=== PATIENT | female | born 1980 | race Caucasian/White ===

== ENCOUNTER → 2016-04-14 | Outpatient (CLI) | payer MEDICAID ==
[~2016-04-14] MED LIST: IBUP-1542 PO
--- NOTE | 2016-04-14 10:43 | RADRPT ---
PROCEDURE: US OB. CLINICAL INDICATION: Size and dates TECHNIQUE: Multiple sonographic images of the pelvis and gravid uterus were obtained. The images were reviewed on a PACS workstation. COMPARISON: 03/10/2015 FINDINGS: There is a single viable intrauterine gestation. Cardiac activity is present with 161 beats per min [place]. There is a breech presentation. The placenta is anterior. There is no evidence for an abruption or placenta previa. There is a normal amount of amniotic fluid with a MVP = 3.9 cm. Measurements were made in order to determine age. The results are as follows: BPD =3.9 cm HC =14.3 cm AC =13.6 cm FL =2.5 cm Estimated gestational age of approximately 18 weeks and 0 days based on ultrasound measurements. Clinical age: 20 weeks and 2 days. The estimated date of delivery is 09/15/16, based on ultrasound measurements. The EFW = 228 g, <3%, based on LMP age. RPTAT: AA IMPRESSION: Single viable intrauterine gestation of approximately 18 weeks and 0 days based on ultrasound measu rements. Smaller than clinical age by 2 weeks. .Jermaine Almaraz MD, Date Time Electronically viewed and signed by .Jermaine Almaraz MD, on 04/14/2016 10:42 .S/
== END | disposition home or self-care (01) ==
LOC: U/S 09:10
PROVIDERS: ATTEND Obstetrics & Gynecology
DX: O26.849 Uterine size-date discrepancy, unspecified trimester (principal); Z3A.00 Weeks of gestation of pregnancy not specified
CPT/HCPCS: 76805

== ENCOUNTER 2016-08-01 16:34 | Outpatient (CLI) | payer MEDICAID ==
[~2016-08-01] VITALS: Ht 149.9 cm; Wt 77.7 kg
[2016-08-01 17:04] VITALS: BP 127/80; PULSE 69; RESP 69; Ht 149.9 cm; Wt 77.7 kg
[2016-08-01] MEDS ORDERED: PRENAT PO (17:08)
[2016-08-01] MEDS ORDERED: FER325 PO (17:09)
[2016-08-01] MEDS ORDERED: CALC600T11 PO (17:10)
[2016-08-01] MEDS ORDERED: NITR-58 PO (17:12)
[2016-08-01] MEDS ORDERED: URSO300C3 PO (17:12)
--- NOTE | 2016-08-01 19:02 | RADRPT ---
PROCEDURE: OB ultrasound for biophysical profile CLINICAL INDICATION: Biophysical profile. . TECHNIQUE: Multiple sonographic images of the pelvis were obtained. Transabdominal views are obta ined. COMPARISON: OB ultrasound 08/02/2016 FINDINGS: Single intrauterine gestation. Presentation: Cephalic. Placenta: Anterior. No evidence of placental abruption. No evidence of placenta previa. breathing movement = 2/2 tone = 2/2 motion = 2/2 SALVADOR = 2/2 SALVADOR = 11.8 cm heart rate: 137 beats per minute IMPRESSION: Single intrauterine gestation. Biophysical profile 10/14 RPTAT: AADD .Miller Brower MD, MD Date Time Electronically viewed and signed by .Miller Brower MD, on 08/01/2016 19:01 .B/
--- NOTE | 2016-08-01 19:05 | RADRPT ---
PROCEDURE: Obstetrical ultrasound. CLINICAL INDICATION: , evaluation. Pelvic pain. TECHNIQUE: Transabdominal sonographic images of the pelvis are obtained. COMPARISON: OB ultrasound 08/02/2016 FINDINGS: Single intrauterine gestation. There is a cephalic presentation. Measurements were made in order to determine age. The results are as follows: BPD = 8.28 cm HC = 30.04 cm AC = 29.44 cm FL = 6.49 cm Heart rate = 132 beats per minute The placenta is anterior. There is no evidence for an abruption or placenta previa. Ovaries are not visualized. IMPRESSION: Single intrauterine gestation of approximately 33 weeks 3 days by ultrasound criteria. [place] estimated weight = 2190 g; 37 percentile for gestational age of 33 weeks 4 days. RPTAT: AADD .Miller Brower MD, Date Time Electronically viewed and signed by .Miller Brower MD, on 08/01/2016 19:04 .B/
[2016-08-01 19:12] LABS: ADD SCAN DIFF NO
[2016-08-01 19:13] LABS: BASOPHIL # 0.1 10^3/ul (0.0-0.1); BASOPHILS % 0.5 % (0.0-2.0); EOSINOPHILS # 0.1 10^3/ul (0.0-0.5); EOSINOPHILS % 0.7 % (0.0-7.0); HEMATOCRIT 34.7 % (37.0-47.0); HEMOGLOBIN 11.3 g/dl (12.0-16.0); LYMPHOCYTES # 3.9 10^3/ul (0.8-2.9); LYMPHOCYTES % 33.6 % (15.0-51.0); MEAN CORPUSCULAR HEMOGLOBIN 28.5 pg (29.0-33.0); MEAN CORPUSCULAR HGB CONC 32.6 g/dl (32.0-37.0); MEAN CORPUSCULAR VOLUME 87.4 fl (82.0-101.0); MEAN PLATELET VOLUME 10.2 fl (7.4-10.4); MONOCYTE # 0.8 10^3/ul (0.3-0.9); MONOCYTES % 6.5 % (0.0-11.0); NEUTROPHIL # 6.7 10^3/ul (1.6-7.5); NEUTROPHILS % 57.8 % (39.0-77.0); NUCLEATED RED BLOOD CELLS # 0.1 10^3/ul (0.0-0.0); NUCLEATED RED BLOOD CELLS% 0.8 /100WBC (0.0-0.0); PLATELET COUNT 286 10^3/UL (140-415); RED BLOOD COUNT 3.97 10^6/ul (4.20-5.40); RED CELL DISTRIBUTION WIDTH 13.2 % (11.5-14.5); WHITE BLOOD COUNT 11.7 10^3/ul (4.8-10.8)
[2016-08-01 19:33] LABS: BILIRUBIN,INDIRECT 0.1 mg/dl (0-1.1); BILIRUBIN,TOTAL 0.1 mg/dl (0.2-1.3); TOTAL PROTEIN 6.9 g/dl (6.1-8.1)
[2016-08-01 19:34] LABS: ALBUMIN/GLOBULIN RATIO 0.76; BILIRUBIN,INDIRECT 0.1 mg/dl (0-1.1); BILIRUBIN,TOTAL 0.1 mg/dl (0.2-1.3); CALCIUM 8.6 mg/dl (8.4-10.2); CREATININE 0.63 mg/dl (0.44-1.00); POTASSIUM 3.9 mmol/L (3.5-5.1); TOTAL PROTEIN 6.9 g/dl (6.1-8.1)
--- NOTE | 2016-08-01 19:56 | QN ---
Documentation Comment 33+wks GA cholestasis of NST reassuring [place] No CTXs IBRAHIMA 10/14 Labs reviewed --->discharged with precautions -->[facility] in 2 days for NST IVAN LOPEZ M.D. August 01, 2016 19:56
== END 2016-08-01 20:51 | disposition home or self-care (01) ==
LOC: OBT 16:34 → L-D 16:34 → OBT 20:51
PROVIDERS: ATTEND Obstetrics & Gynecology
DX: O26.613 Liver and biliary tract disorders in pregnancy, third trimester (principal); K83.1 Obstruction of bile duct; Z3A.33 33 weeks gestation of pregnancy
CPT/HCPCS: 36415; 76815; 76818; 80053; 80076; 85025; Z7500; G0463

== ENCOUNTER 2016-08-05 10:54 | Inpatient (IN) | payer MEDICAID ==
[~2016-08-05] VITALS: Ht 147.3 cm; Wt 77.7 kg
[~2016-08-05 10:54] MED LIST changes: +CALC600T11 PO; +FER325 PO; -IBUP-1542 PO; +NITR-58 PO; +PRENAT PO; +URSO300C3 PO
[2016-08-05 11:06] VITALS: Ht 147.3 cm; Wt 77.7 kg
[2016-08-05 11:13] VITALS: BP 160/87; PULSE 55; RESP 18
[2016-08-05 11:23] LABS: ADD SCAN DIFF NO
[2016-08-05] MEDS: LACTATED RINGER'S 1,000 ML IV SCH ×3 (11:26→21:30)
[2016-08-05] MEDS ORDERED: OXYTOCIN 30 UNITS/LR 500 ML IV SCH ×2 (11:30→13:36)
[2016-08-05] MEDS ORDERED: METHYLERGONOVINE 0.2 MG INJ IM PRN ×2 (11:30→14:00)
[2016-08-05] MEDS ORDERED: CARBOPROST 250 MCG INJ IM PRN ×2 (11:30→14:00)
[2016-08-05] MEDS ORDERED: CEFAZOLIN 2 GM/50 ML (PMX) 50 ML IV SCH (11:30)
[2016-08-05] MEDS ORDERED: OXYTOCIN 30 UNITS/LR 500 ML IV PRN ×2 (11:30→14:00)
[2016-08-05] MEDS ORDERED: MISOPROSTOL 200 MCG TAB PR PRN ×2 (11:30→14:00)
[2016-08-05 11:34] LABS: BASOPHIL # 0.1 10^3/ul (0.0-0.1); BASOPHILS % 0.6 % (0.0-2.0); EOSINOPHILS # 0.1 10^3/ul (0.0-0.5); EOSINOPHILS % 0.6 % (0.0-7.0); HEMATOCRIT 37.3 % (37.0-47.0); HEMOGLOBIN 12.2 g/dl (12.0-16.0); LYMPHOCYTES # 3.9 10^3/ul (0.8-2.9); LYMPHOCYTES % 36.5 % (15.0-51.0); MEAN CORPUSCULAR HGB CONC 32.7 g/dl (32.0-37.0); MEAN CORPUSCULAR VOLUME 88.6 fl (82.0-101.0); MEAN PLATELET VOLUME 10.2 fl (7.4-10.4); MONOCYTE # 0.6 10^3/ul (0.3-0.9); MONOCYTES % 5.6 % (0.0-11.0); NEUTROPHILS % 55.8 % (39.0-77.0); NUCLEATED RED BLOOD CELLS% 0.3 /100WBC (0.0-0.0); PLATELET COUNT 256 10^3/UL (140-415); RED BLOOD COUNT 4.21 10^6/ul (4.20-5.40); RED CELL DISTRIBUTION WIDTH 14.2 % (11.5-14.5); WHITE BLOOD COUNT 10.8 10^3/ul (4.8-10.8)
[2016-08-05 11:40] LABS: INR 0.82; PARTIAL THROMBOPLASTIN TIME 27.5 Sec (25.0-35.0); PROTIME 11.3 Sec (12.2-14.2); PT RATIO 0.9
[2016-08-05] MEDS ORDERED: LACTATED RINGER'S 1,000 ML IV ONE (11:40)
[2016-08-05] MEDS ORDERED: METOCLOPRAMIDE 10 MG INJ IV STA ×2 (11:47→11:54)
[2016-08-05] MEDS ORDERED: CITRIC ACID/SODIUM CITRATE 15 ML CUP ONE (11:53)
[2016-08-05] MEDS ORDERED: ONDANSETRON 4 MG INJ IV ONE (12:00)
[2016-08-05] MEDS ORDERED: CITRIC ACID/NA CITRATE 30 ML CUP PO ONE (12:00)
[2016-08-05] MEDS ORDERED: morphine SULFATE/PF (10 MG/10 ML) INJ ONE (12:11)
[2016-08-05] MEDS ORDERED: FENTAnyl 50 MCG/ML VIAL ONE (12:11)
[2016-08-05] MEDS ORDERED: MEPERIDINE 100 MG INJ ONE (12:28)
[2016-08-05] MEDS ORDERED: DIPHENHYDRAMINE 50 MG INJ IV PRN (13:00)
[2016-08-05] MEDS ORDERED: PROCHLORPERAZINE 10 MG INJ IV PRN (13:00)
[2016-08-05] MEDS ORDERED: HYDROmorphONE 1 MG/ML SYG IV PRN ×2 (13:00)
[2016-08-05] MEDS ORDERED: NALOXONE (0.4 MG/ML) INJ IV PRN (13:00)
[2016-08-05] MEDS ORDERED: ONDANSETRON 4 MG INJ IV PRN (13:00)
[2016-08-05] MEDS ORDERED: OXYTOCIN 30 UNITS/LR 500 ML IV ONE (13:03)
[2016-08-05 13:07] LABS: AADO2 Cord Arterial 54.9 mmHg; Arterial Cord Blood pCO2 69.6 mmHG (25-50); CBA Base Excess -0.7 mmol/L; CBA Total Hemglobin 16.3 g/dl; Cord Blood Arterial pO2 11.5 mmHG (15.0-45.0); Fraction OxyHgb Cord Arterial 13.6 %; MODE ROOM AIR; MetHgb Cord Arterial 2.3 %; Sample Type CBA
[2016-08-05 13:09] LABS: CBV Base Excess -2.7 mmol/L; CBV COHb 0.3 %; CBV Total Hemglobin 16.4 g/dl; Cord Blood Venous AADO2 64.1 mmHg; Cord Blood Venous pO2 10.4 mmHG (15.0-45.0); Fraction OxyHgb Cord Venous 11.9 %; MODE ROOM AIR; MetHgb Cord Venous 2.1 %; Sample Type CBV
[2016-08-05] MEDS ORDERED: OXYCODONE/ACETAMINOPHEN (5/325) TAB PO PRN ×2 (14:00)
[2016-08-05] MEDS ORDERED: LANOLIN 7 GM TUBE TOP PRN (14:00)
[2016-08-05] MEDS: IBUPROFEN 800 MG TAB PO SCH ×2 (14:00→21:56)
--- NOTE | 2016-08-05 14:27 | PREOPHP ---
DATE OF ADMISSION: 08/05/2016 HISTORY OF PRESENT ILLNESS: Patient is a 35-year-old 6, para 5 with an intrauterine pregnan cy at 34 weeks 1 day. The patient has cholestasis of IUGR and marginal cord insertion has been foll owed at the clinic and received a call from Dr. Baer today stating this patient needs to be deliver ed urgently due to a non-reassuring heart tracing category 2. [facility] and proceeding to delivery. The patient's small prev ious deliveries were all vaginal delivery. She did have 1 demise at term, her second baby. T he patient was just diagnosed with cholestasis that is ongoing. started on ursodiol and Welchol less than a week ago. Her bile acids were 20. Growth was 2 weeks behind. All of her other babies were between 7 and 8 pounds, all were good normal size. PAST MEDICAL HISTORY: Cholestasis. PAST SURGICAL HISTORY: None. ALLERGIES: NO KNOWN DRUG ALLERGIES. VITAL SIGNS: Temperature 98.0, blood pressure 160/87, was her first one here. HEART: Regular rate and rhythm. LUNGS: Clear to auscultation. ABDOMEN: Soft, nontender, gravid, small. PELVIC: Cervical exam deferred. EXTREMITIES: Nontender, no edema. LABORATORY WORK: Her blood type O positive, antibody screen negative, serology nonreactive , rubella immune. Pap normal. Hepatitis B surface antigen negative, HIV negative. Initial hemoglo bin 12.7, repeat now was 12.7, which was normal. One hour post-Glucola was 136. ASSESSMENT: Intrauterine at 34 weeks 1 day, intrauterine growth restriction, category 2 t racing, cholestasis. History of a term demise. PLAN: Primary low transverse section, urgent. Dictated By: EBONY JOHNSON/KELLEY Conf#: [id number] DID#: [id number]
[2016-08-05] MEDS: KETOROLAC 30 MG INJ IV PRN (14:40)
--- NOTE | 2016-08-05 15:03 | OPR ---
DATE OF OPERATION: 08/05/2016 PREOPERATIVE DIAGNOSES: Intrauterine at 34 weeks 1 day, cholestasis, intrauterine growth restriction, history of demise at term, category 2 heart tracing. POSTOPERATIVE DIAGNOSES: 1. Intrauterine at 34 weeks 1 day, cholestasis, intrauterine growth restriction, history of demise at term, category 2 heart tracing. 2. Status post delivery of a viable male infant weighing 1615 grams or 3 pounds 9 ounces with scores of 9 and 9. OPERATION PERFORMED: Primary low transverse section. SURGEON: Dr Perez WATER COMMISSIONER: Dr Soriano ANESTHESIOLOGIST: Dr. New ANESTHESIA: Spinal block. ESTIMATED BLOOD LOSS: 500 mL. COMPLICATIONS: None. PATHOLOGY: Placenta sent to pathology. PROCEDURE: Patient was brought to the operating room, placed on the operating table and was sat up for a spinal block. She was then laid in the full supine position. A Weaver catheter was placed and she was prepped and draped in the usual sterile fashion. A Pfannenstiel incision was made using a knife through the skin and subcutaneous tissue down to the level of fascia. Fascia was incised and extended bilaterally using Bovie cautery. Superior edge of the fascia was grasped with Page clamps and the rectus muscles were from the overlying fascia using blunt dissection and Bovie cautery. The anterior peritoneum was bluntly entered using the surgeon's fingers and the incision was stretched open with hands. Bladder blade and Harper retractor were placed into the incision and lower uterine segment was incised with a knife , entered with a Ewelina clamp and then stretched open with hands and cut with bandage scissors. Bag was intact, it was ruptured. head was easily delivered through the incision with gentle fundal pressure was delivered. There was a nuchal cord with minimal Rick's jelly around it that was delivered. Cord was allowed to pulsate for 30 seconds prior to cutting and cut. Kept a piece of cord for cord gases just in case, and then collected cord blood, and placenta was then manually extracted and sent to pathology. The inside of the uterus was cleaned. The incision was closed in 2 layers using #1 chromic in a running locking stitch with excellent tissue approximation and hemostasis. Tubes and ovaries were examined and noted to be normal. The pelvis was irrigated well. Uterus was replaced back into the abdomen. Incision was examined again and noted to be dry. The anterior peritoneum was then closed using 2-0 chromic in a running stitch. The rectus muscles were also brought back together at midline with 2 interrupted [id number] sutures of the same material. The underbelly of the fascia was examined and noted to be dry. Fascia was then closed using 0 Vicryl suture in a running stitch from each lateral edge to midline with overlap at the midline. Subcutaneous tissue was irrigated well, cautery applied where needed for hemostasis. The subcutaneous layer was closed with 2-0 chromic and the skin was closed with 3-0 Monocryl in a subcuticular stitch. Steri-Strips with Mastisol were then placed and a good pressure dressing was applied. The patient tolerated the procedure very well and was brought to recovery room in excellent condition. Dictated By: BEONY JOHNSON/KELLEY Conf#: [id number] DID#: [id number] MTDYolanda
[2016-08-05] MEDS ORDERED: MAGNESIUM SULFATE 4 GM/100 ML 100 ML IV SCH (15:15)
[2016-08-05] MEDS ORDERED: CA GLUCONATE (GM) 10% 10ML INJ IV PRN (15:30)
[2016-08-05] MEDS ORDERED: CITRIC ACID/SODIUM CITRATE 15 ML CUP PO ONE (15:30)
[2016-08-05 15:34] LABS: ALBUMIN 3.1 g/dl (3.3-4.9); ALBUMIN/GLOBULIN RATIO 0.77; BILIRUBIN,INDIRECT 0.3 mg/dl (0-1.1); BILIRUBIN,TOTAL 0.3 mg/dl (0.2-1.3); CALCIUM 9.8 mg/dl (8.4-10.2); CREATININE 0.56 mg/dl (0.44-1.00); POTASSIUM 4.3 mmol/L (3.5-5.1); TOTAL PROTEIN 7.1 g/dl (6.1-8.1)
[2016-08-05] MEDS: MAGNESIUM SULFATE 20 GM/500 ML 500 ML IV SCH (16:01)
[2016-08-05 17:00] VITALS: BP 133/79; PULSE 65; RESP 18
[2016-08-05 18:00] VITALS: BP 155/93; PULSE 113; RESP 18
[2016-08-05 20:00] VITALS: BP 137/84; PULSE 18; RESP 18
[2016-08-05 21:00] VITALS: BP 132/72; PULSE 71; RESP 18
[2016-08-05 23:00] VITALS: BP 126/66; PULSE 83; RESP 18
[2016-08-06] VITALS (12 sets, daily range): BP systolic 109–131; BP diastolic 65–85; PULSE 75–90; RESP 16–20
[2016-08-06] MEDS: MAGNESIUM SULFATE 20 GM/500 ML 500 ML IV SCH ×2 (01:47→21:45)
[2016-08-06 04:08] LABS: ADD SCAN DIFF NO
[2016-08-06 04:36] LABS: BASOPHIL # 0.1 10^3/ul (0.0-0.1); BASOPHILS % 0.3 % (0.0-2.0); EOSINOPHILS % 0.2 % (0.0-7.0); HEMATOCRIT 30.3 % (37.0-47.0); LYMPHOCYTES # 3.1 10^3/ul (0.8-2.9); LYMPHOCYTES % 21.1 % (15.0-51.0); MEAN CORPUSCULAR VOLUME 87.8 fl (82.0-101.0); MEAN PLATELET VOLUME 10.6 fl (7.4-10.4); MONOCYTE # 0.8 10^3/ul (0.3-0.9); MONOCYTES % 5.5 % (0.0-11.0); NEUTROPHIL # 10.4 10^3/ul (1.6-7.5); NEUTROPHILS % 72.1 % (39.0-77.0); PLATELET COUNT 205 10^3/UL (140-415); RED BLOOD COUNT 3.45 10^6/ul (4.20-5.40); RED CELL DISTRIBUTION WIDTH 14.6 % (11.5-14.5); WHITE BLOOD COUNT 14.5 10^3/ul (4.8-10.8)
[2016-08-06] MEDS: IBUPROFEN 800 MG TAB PO SCH ×3 (06:00→21:37)
--- NOTE | 2016-08-06 07:16 | RADRPT ---
PROCEDURE: XR Chest. CLINICAL INDICATION: Positive PPD TECHNIQUE: Single frontal view of the chest was obtained COMPARISON: None FINDINGS: The heart and mediastinum are within normal limits. The lungs are clear and there is no pleural effusion or pneumothorax. RPTAT: AA IMPRESSION: No active disease. No radiographic evidence of active tuberculosis. .Jermaine Almaraz MD, MD Date Time Electronically viewed and signed by .Jermaine Almaraz MD, on 08/06/2016 07:16 .S/
[2016-08-06] MEDS: KETOROLAC 30 MG INJ IV PRN (07:56)
[2016-08-06] MEDS: LACTATED RINGER'S 1,000 ML IV SCH ×4 (11:10→21:36)
[2016-08-06] MEDS: CLINDAMYCIN 300 MG CAP PO SCH (19:10)
--- NOTE | 2016-08-06 20:35 | PN ---
Date/Time of Note Date/Time of Note DATE: 08/06/16 TIME: 20:33 Assessment/Plan VTE Prophylaxis VTE Prophylaxis Intervention: ambulation Lines/Catheters IV Catheter Type (from Nrsg): Peripheral IV Assessment/Plan Assessment/Plan POD # 1 S/P C/S will advance diet and ambulate Subjective 24 Hr Interval Summary no BM passing flatus Constitutional: BM, ambulates, flatus, improved, no complaints, urine output Pain Control: well controlled Exam/Review of Systems Vital Signs Vitals Vital Signs Date Time Temp Pulse Resp B/P Pulse Ox O2 Delivery O2 Flow Rate FiO2 08/06/16 16:18 97.8 80 20 124/72 Room Air 08/06/16 08:40 98 21 Intake and Output 08/05/16 08/05/16 08/06/16 15:00 23:00 07:00 Intake Total 2500 ml 950 ml 950 ml Output Total 1100 ml 1750 ml 1150 ml Balance 1400 ml -800 ml -200 ml Exam Free Text/Dictation abdomen: soft BS + Constitutional: alert, oriented, well developed Psych: nl mood/affect, no complaints Head: atraumatic, normocephalic Eyes: EOMI, nl conjunctiva, nl lids, nl sclera ENMT: mucosa pink and moist, nl external ears & nose, nl lips & teeth, nl nasal mucosa & septum Neck: non-tender, supple Respiratory: clear to auscultation, normal air movement Cardiovascular: nl pulses, regular rate and rhythm Gastrointestinal: nl liver, spleen, non-tender, soft Drains None Musculoskeletal: nl extremities to inspection, nl gait and stance Extremities: normal pulses Neurological: CONDENSER TUBE TENDER II-XII intact, nl mental status, nl speech, nl strength Skin: nl turgor, rash or lesions Lymph: nl lymph nodes Results Result Diagram: 08/06/16 0306 08/05/16 1110 GEOFF FALLON MD August 06, 2016 20:35
--- NOTE | 2016-08-06 23:08 | NSTRPT ---
NST Information Datetime Report Generated by CPN: 08/06/2016 23:08 Datetime: 08/05/2016 09:13 NST Information EGA: 34.1 Test Number: 3 Time on Monitor: 08/05/2016 09:43 Time off Monitor: 08/05/2016 10:42 NST Duration (Min): 59 Reason for NST: IUGR; Other Reason for NST Other: Velamentous Cord Insertion Test and Monitor Explained: Monitor Explained; Test Explained; Verbalized Understanding Pulse: 52 Resp: 17 SBP: 139 DBP: 85 Test Evaluation NST Interventions: Reposition Patient Patient States Movement: Present Contraction Frequency: undertermined at this time. FHR Baseline : 150 Variability: Moderate 6-25bpm Accelerations: 10X10 Decelerations: Variable FHR Category: Category II NST Results: Non-Reactive Provider Notified: Dr Baer, Dr Perez (covering for Dr Boles) Comments: To Perinatology, SALVADOR 9.4cm, cephalic S/D ratio 3.87 1030-Dr aBer at bedside, order received to call Dr Perez (covering for Dr Boles), Dr Baer exp higinio POC to pt of need for delivery of fetus via c/s at this time. Pt states understanding and de nies further questions at this time. Dr Perez on phone, Dr Baer giving report. Orders received fro m Dr Perez to admit to L_D for C/S. Report called to Karon Shaw/L_D. 1045-Pt to L_D via w/c accomp by MARK Cunningham. Electronically Signed By E-Signature: with User ID: [id number] Datetime: 07/31/2016 11:29 NST Information EGA: 33.3 NST Duration (Min): 41 Datetime: 07/28/2016 11:22 NST Information EGA: 33.0 Datetime: 07/28/2016 11:15 NST Duration (Min): 35
[2016-08-07] MEDS: CLINDAMYCIN 300 MG CAP PO SCH ×4 (00:13→17:46)
[2016-08-07 01:00] VITALS: BP 109/61; PULSE 75; RESP 15
[2016-08-07 04:30] VITALS: BP 121/80; PULSE 66; RESP 16
[2016-08-07] MEDS: LACTATED RINGER'S 1,000 ML IV SCH (05:36)
[2016-08-07] MEDS: IBUPROFEN 800 MG TAB PO SCH ×3 (05:44→22:26)
[2016-08-07 07:50] VITALS: BP 126/76; PULSE 83; RESP 17
[2016-08-07 08:21] LABS: ADD SCAN DIFF NO
[2016-08-07 08:26] LABS: BASOPHILS % 0.2 % (0.0-2.0); EOSINOPHILS # 0.1 10^3/ul (0.0-0.5); EOSINOPHILS % 0.6 % (0.0-7.0); HEMATOCRIT 31.3 % (37.0-47.0); HEMOGLOBIN 10.1 g/dl (12.0-16.0); LYMPHOCYTES % 20.2 % (15.0-51.0); MEAN CORPUSCULAR HEMOGLOBIN 28.8 pg (29.0-33.0); MEAN CORPUSCULAR HGB CONC 32.3 g/dl (32.0-37.0); MEAN CORPUSCULAR VOLUME 89.2 fl (82.0-101.0); MEAN PLATELET VOLUME 10.4 fl (7.4-10.4); MONOCYTE # 0.7 10^3/ul (0.3-0.9); MONOCYTES % 4.6 % (0.0-11.0); NEUTROPHIL # 10.9 10^3/ul (1.6-7.5); NEUTROPHILS % 73.9 % (39.0-77.0); PLATELET COUNT 208 10^3/UL (140-415); RED BLOOD COUNT 3.51 10^6/ul (4.20-5.40); RED CELL DISTRIBUTION WIDTH 15.7 % (11.5-14.5); WHITE BLOOD COUNT 14.8 10^3/ul (4.8-10.8)
--- NOTE | 2016-08-07 13:54 | DS ---
Date/Time of Note Date/Time of Note home next day DATE: 08/07/16 TIME: 13:52 Obstetrical Discharge Record Final Diagnosis Final Diagnosis: delivered Other Final Diagnosis S/P C/S , IUGR , category 2 FHTs Section Section: Primary Primary Indication IUGR and persistent category 2 FHTs Complications Other (IUGR) Condition on Discharge Physical Assessment Last Vitals: see nurses notes Voiding: Yes Bowel Movement: Yes Breast: Soft, non-tender, Filling Fundus: Firm Abdomen and Incision: soft BS= Incision: healing well Episiotomy: NA Calf Tenderness: No Patient Condition: Good GEOFF FALLON MD Aug 07, 2016 13:54
--- NOTE | 2016-08-07 13:56 | DS ---
Date/Time of Note Date/Time of Note DATE: 08/07/16 TIME: 13:54 Discharge Summary Admission/Discharge Info Admit Date/Time August 05, 2016 at 10:54 Discharge Date/Time 08/09/2016 Final Diagnosis S/P C/S Procedures primary C/S Hx of Present Illness 35 y/o female had repeat C/S Hospital Course uncomplicated Home Meds Reported Medications Nitrofurantoin Monohyd Macrocr* (Macrobid*) 100 Mg Capsr, 100 MG PO Q12, CAP 08/01/16 Ursodiol* (Ursodiol*) 300 Mg Capsule, 300 MG PO TID, CAP 08/01/16 Calcium Carbonate* (Calcium Carbonate*) 600 MG Ca Tab, 500 MG PO BID, TAB 08/01/16 Ferrous Sulfate* (Ferrous Sulfate*) 325 Mg Tabec, 325 MG PO BID, TAB 08/01/16 Multivit/Min/Fol Ac/Iron/Pren* ( S*) 1 Tab Tab, 1 TAB PO DAILY, TAB 08/01/16 Discontinued Scripts Ibuprofen* (Ibuprofen*) 600 Mg Tab, 600 MG PO Q6, #20 TAB 0 Refills Prov:GEOFF FALLON MD 03/11/15 Follow-up Plan 2-3 days in clinic for staple removal Primary Care Provider Care Physician No Primary Pending Labs Laboratory Tests Test 08/07/16 07:30 White Blood Count 14.810^3/ul (4.8-10.8) Red Blood Count 3.5110^6/ul (4.20-5.40) Hemoglobin 10.1g/dl (12.0-16.0) Hematocrit 31.3% (37.0-47.0) Mean Corpuscular Volume 89.2fl (82.0-101.0) Mean Corpuscular Hemoglobin 28.8pg (29.0-33.0) Mean Corpuscular Hemoglobin Concent 32.3g/dl (32.0-37.0) Red Cell Distribution Width 15.7% (11.5-14.5) Platelet Count 23827^3/UL (140-415) Mean Platelet Volume 10.4fl (7.4-10.4) Neutrophils % 73.9% (39.0-77.0) Lymphocytes % 20.2% (15.0-51.0) Monocytes % 4.6% (0.0-11.0) Eosinophils % 0.6% (0.0-7.0) Basophils % 0.2% (0.0-2.0) Nucleated Red Blood Cells % 0.0/100WBC (0.0-0.0) Neutrophils # 10.910^3/ul (1.6-7.5) Lymphocytes # 3.010^3/ul (0.8-2.9) Monocytes # 0.710^3/ul (0.3-0.9) Eosinophils # 0.110^3/ul (0.0-0.5) Basophils # 0.010^3/ul (0.0-0.1) Nucleated Red Blood Cells # 0.010^3/ul (0.0-0.0) GEOFF FALLON MD Aug 07, 2016 13:56
--- NOTE | 2016-08-07 13:57 | PD.PPDC ---
TIRE BUSTER Discharge Instruction Provider Information Physician Information 35 y/o female had primary C/S Diagnosis Final Diagnosis: S/P C/S Condition Patient Condition: Good Diet Diet: Resume Regular Diet Activity/Restrictions Activity: July Shower Restrictions: No Exercising Nothing in the Vagina Return to Work or School: Oct 13, 2016 Follow-up Follow-up with Physician: 2, 3, Day/Days (in clinic) Return to clinic for BUSINESS DEVELOPMENT ANALYST Instructions: Fever greater than 101 Chills OB Instructions: Breast Tenderness Depression Surgical Instructions: Incisional Drainage Incisional Redness GEOFF FALLON MD Aug 07, 2016 13:57
[2016-08-07] MEDS ORDERED: Oxycodone/Acetamin (5/325) PO (13:59)
[2016-08-07] MEDS ORDERED: IBUP800T25 PO (13:59)
[2016-08-07 16:10] VITALS: BP 109/56; PULSE 98; RESP 18
[2016-08-07 20:00] VITALS: BP 119/80; PULSE 71; RESP 19
[2016-08-08] MEDS: CLINDAMYCIN 300 MG CAP PO SCH ×3 (00:27→11:43)
[2016-08-08 04:15] VITALS: BP 110/63; PULSE 67; RESP 19
[2016-08-08] MEDS: IBUPROFEN 800 MG TAB PO SCH ×2 (05:50→14:16)
[2016-08-08 08:00] VITALS: BP 120/75; PULSE 63; RESP 18
[2016-08-08] MEDS ORDERED: DIPHTH/TET/ACEL PERTUSS (ADULT) 0.5 ML VIAL IM* ONE (09:00)
== END 2016-08-08 17:45 | disposition home or self-care (01) | DRG 766 ==
LOC: L-D 10:54 → PP1 16:59 → EDSTATUS 09-15 10:52
PROVIDERS: ADMIT Obstetrics & Gynecology; ATTEND Obstetrics & Gynecology
PROC: 10D00Z1 Extraction of Products of Conception, Low, Open Approach (ICD-10-PCS; principal; 2016-08-05 12:30)
DX: O60.14X0 Preterm labor third trimester with preterm delivery third trimester, not applicable or unspecified (principal); O76 Abnormality in fetal heart rate and rhythm complicating labor and delivery; Z3A.34 34 weeks gestation of pregnancy; Z37.0 Single live birth
CPT/HCPCS: 36415; 36600; 71010; 80053; 82803; 83735; 84560; 85025; 85610; 85730; 86592; 86850; 86900; 86901; 87340; 88307; 90715; 94760; 99464; J0690; J1885; J2175; J2274; J2405; J2590; J2765; J3010; J3475; J7120

== ENCOUNTER 2019-01-05 11:48 | Inpatient (IN) | payer MEDICAID ==
[~2019-01-05] VITALS: Ht 147.3 cm; Wt 72.3 kg
[2019-01-05] VITALS (8 sets, daily range): BP systolic 92–121; BP diastolic 53–70; PULSE 56–78; RESP 16–20; Ht 147.3 cm; Wt 72.3 kg
[~2019-01-05 11:48] MED LIST changes: +Acetaminophen PO; -CALC600T11 PO; +CALC600T24 PO; +IBUP-1544 PO; +IBUP800T48 PO; -NITR-58 PO; +Oxycodone/Acetamin (5/325) PO; -URSO300C3 PO
[2019-01-05] MEDS ORDERED: LACTATED RINGER'S 1,000 ML IV SCH (12:25)
[2019-01-05] MEDS ORDERED: CEFAZOLIN 2 GM/50 ML (PMX) 50 ML IVPB SCH (12:30)
[2019-01-05] MEDS ORDERED: MISOPROSTOL 200 MCG TAB PR PRN ×2 (12:30→20:00)
[2019-01-05] MEDS ORDERED: LACTATED RINGER'S 1,000 ML IV ONE (12:30)
[2019-01-05] MEDS ORDERED: OXYTOCIN 30 UNITS/LR 500 ML IV SCH (12:30)
[2019-01-05] MEDS ORDERED: CARBOPROST 250 MCG INJ IM PRN ×2 (12:30→20:00)
[2019-01-05] MEDS ORDERED: METHYLERGONOVINE 0.2 MG INJ IM PRN ×2 (12:30→20:00)
[2019-01-05] MEDS ORDERED: OXYTOCIN 30 UNITS/LR 500 ML IV PRN ×2 (12:30→20:00)
[2019-01-05] MEDS ORDERED: ONDANSETRON 4 MG INJ IV STA (13:32)
[2019-01-05] MEDS ORDERED: CITRIC ACID/NA CITRATE 30 ML CUP PO ONE (14:00)
[2019-01-05] MEDS ORDERED: FAMOTIDINE 20 MG INJ IV ONE (14:00)
[2019-01-05] MEDS ORDERED: FENTAnyl 50 MCG/ML VIAL ONE (15:09)
[2019-01-05] MEDS ORDERED: METOCLOPRAMIDE 10 MG INJ ONE (15:28)
[2019-01-05] MEDS ORDERED: PHENYLephrine (100 MCG/ML) 10ML SYG ONE (15:30)
[2019-01-05] MEDS ORDERED: EPHEDrine 25 MG/5 ML SYG ONE (15:30)
[2019-01-05] MEDS ORDERED: KETOROLAC 30 MG INJ IV STA (16:27)
[2019-01-05] MEDS ORDERED: ACETAMINOPHEN 500 MG TAB PO STA (16:27)
[2019-01-05] MEDS ORDERED: AZITHROMYCIN 500MG/NS (PMX) 250 ML IVPB ONE (16:30)
[2019-01-05] MEDS ORDERED: NALOXONE (0.4 MG/ML) INJ IV PRN (17:00)
[2019-01-05] MEDS ORDERED: ONDANSETRON 4 MG INJ IV PRN (17:00)
[2019-01-05] MEDS ORDERED: TRIMETHOBENZAMIDE 100 MG/ML VIAL IM PRN (17:00)
[2019-01-05] MEDS ORDERED: DIPHENHYDRAMINE 50 MG INJ IV PRN (17:00)
[2019-01-05] MEDS ORDERED: NALBUPHINE HCL (10 MG/1 ML) INJ IV PRN (17:00)
[2019-01-05] MEDS ORDERED: morphine 2 MG INJ IV PRN ×2 (17:00)
[2019-01-05] MEDS: LACTATED RINGER'S 1,000 ML IV SCH ×2 (19:46→22:23)
[2019-01-05] MEDS: KETOROLAC 30 MG INJ IV PRN (19:57)
[2019-01-05] MEDS ORDERED: LANOLIN HPA 1 PKT TOP PRN (20:00)
[2019-01-05] MEDS ORDERED: OXYCODONE/ACETAMINOPHEN (5/325) TAB PO PRN (20:00)
[2019-01-05] MEDS ORDERED: HYDROCODONE/APAP (5/325) TAB PO PRN (20:00)
[2019-01-05] MEDS ORDERED: NA PHOSPHATE/BIPHOS 133 ML ENEMA PR PRN (20:00)
[2019-01-05] MEDS: CEFAZOLIN 2 GM/50 ML (PMX) 50 ML IVPB SCH (20:18)
[2019-01-05] MEDS: SENNA/DOCUSATE NA (8.6MG/50MG) TAB PO SCH (22:21)
[2019-01-06] VITALS: BP 112/70; PULSE 70; RESP 18
[2019-01-06] MEDS: CLINDAMYCIN 300 MG CAP PO SCH ×4 (00:40→18:10)
[2019-01-06] MEDS: KETOROLAC 30 MG INJ IV PRN (03:33)
[2019-01-06] MEDS: CEFAZOLIN 2 GM/50 ML (PMX) 50 ML IVPB SCH ×2 (03:46→12:53)
[2019-01-06 03:55] VITALS: BP 110/68; PULSE 70; RESP 19
[2019-01-06] MEDS ORDERED: LACTATED RINGER'S 1,000 ML IV ONE (07:30)
[2019-01-06] MEDS: LACTATED RINGER'S 1,000 ML IV SCH ×2 (07:30→15:30)
[2019-01-06 08:00] VITALS: BP 104/66; PULSE 18; RESP 18
[2019-01-06] MEDS: SENNA/DOCUSATE NA (8.6MG/50MG) TAB PO SCH ×2 (10:19→19:58)
[2019-01-06] MEDS ORDERED: BISACODYL 10 MG SUPP PR ONE (10:30)
[2019-01-06 12:00] VITALS: BP 105/58; PULSE 68; RESP 18
[2019-01-06 16:38] VITALS: BP 116/76; PULSE 74; RESP 18
[2019-01-06 19:45] VITALS: BP 113/69; PULSE 75; RESP 18
[2019-01-06] MEDS: IBUPROFEN 800 MG TAB PO SCH (22:11)
[2019-01-07 04:30] VITALS: BP 110/66; PULSE 72; RESP 18
[2019-01-07] MEDS: CLINDAMYCIN 300 MG CAP PO SCH ×4 (05:07→17:48)
[2019-01-07] MEDS: IBUPROFEN 800 MG TAB PO SCH ×3 (06:12→21:35)
[2019-01-07 08:30] VITALS: BP 94/59; PULSE 61; RESP 18
[2019-01-07] MEDS: SENNA/DOCUSATE NA (8.6MG/50MG) TAB PO SCH ×2 (09:23→21:35)
[2019-01-07 16:15] VITALS: BP 95/51; PULSE 68; RESP 18
[2019-01-07] MEDS ORDERED: ACETAMINOPHEN 500 MG TAB PO STA (16:21)
[2019-01-07 21:00] VITALS: BP 100/59; PULSE 72; RESP 16
[2019-01-08] MEDS: CLINDAMYCIN 300 MG CAP PO SCH ×3 (00:02→12:11)
[2019-01-08 04:00] VITALS: BP 114/54; PULSE 82; RESP 19
[2019-01-08] MEDS: IBUPROFEN 800 MG TAB PO SCH ×2 (05:14→13:22)
[2019-01-08 08:00] VITALS: BP 104/64; PULSE 65; RESP 18
[2019-01-08] MEDS ORDERED: MEASLES,MUMPS,RUBELLA VACCINE INJ SC* ONE (09:00)
[2019-01-08] MEDS ORDERED: DIPHTH/TET/ACEL PERTUSS (ADULT) 0.5 ML VIAL IM* ONE (09:00)
[2019-01-08] MEDS: SENNA/DOCUSATE NA (8.6MG/50MG) TAB PO SCH (10:29)
== END 2019-01-08 16:05 | disposition home or self-care (01) | DRG 786 ==
LOC: L-D 11:48 → PP1 19:23
PROVIDERS: ADMIT Obstetrics & Gynecology; ATTEND Obstetrics & Gynecology
PROC: 10D00Z1 Extraction of Products of Conception, Low, Open Approach (ICD-10-PCS; 2019-01-05)
PROC: 10D00Z1 Extraction of Products of Conception, Low, Open Approach (ICD-10-PCS; principal; 2019-01-05 14:00)
DX: O65.5 Obstructed labor due to abnormality of maternal pelvic organs (principal); K83.1 Obstruction of bile duct; O26.62 Liver and biliary tract disorders in childbirth; O34.211 Maternal care for low transverse scar from previous cesarean delivery; Z3A.37 37 weeks gestation of pregnancy; Z37.0 Single live birth
CPT/HCPCS: 85025; 85610; 85730; 86592; 86703; 86803; 86850; 86900; 86901; 87340; 99464; J0690; J1885; J2370; J2405; J2590; J2765; J3010; J7120